=== PATIENT | male | born 1990 | race Caucasian/White ===

== ENCOUNTER 2024-08-20 18:24 | Emergency (ER) | payer OTHER, SELFPAY ==
[2024-08-20 18:31] VITALS: BP 130/63; PULSE 75; RESP 13; TEMP 36.7; O2SAT 100; BMI 26.4
--- NOTE | 2024-08-20 18:56 | ED_ITS ---
HPI - Male Genitourinary <Olesya Vinson PA-C - Last Filed: 08/20/24 19:15> General Chief complaint: Urogenital-Male Stated complaint: Swollen Genitals Time Seen by Provider: 08/20/24 18:56 Source: patient Mode of arrival: Ambulatory History of Present Illness HPI Narrative: Mr. Mcfarland is a pleasant 34-year-old male with no reported past medical history who presents to the emergency department for acute scrotal swelling that occurred about 30 minutes prior to arrival. Patient states he got dressed for going to the grocery store and had no testicular swelling or problems, when he got home he change into something new and noticed that his scrotum/both testicles were extremely swollen. He has not experiencing testicular pain but states that the area feels very heavy and he has some tingling sensation in the suprapubic region. There was no trauma, no heavy lifting, no precipitating events. He has not been experiencing any dysuria abdominal pain nausea, vomiting, diarrhea, constipation, fevers, chills, flu-like symptoms, lower extremity swelling. He does report that he has been having some left hip pain from weightlifting for the last week and he saw a little bit more bloated the last 2 days. He is here with his . Related Data Previous Rx's Medication Instructions Recorded sulfamethoxazole 800 1 tab PO Q12H 7 days #14 tabs 08/20/24 mg-trimethoprim 160 mg tablet (Bactrim DS) Review of Systems <Olesya Vinson PA-C - Last Filed: 08/20/24 19:15> Review of Systems ROS Unobtainable: All systems reviewed & are unremarkable except as noted in HPI and below Exam <Olesya Vinson PA-C - Last Filed: 08/20/24 19:15> Narrative Exam Narrative: GENERAL: 34 year old patient appears stated age. Well-developed patient, in no acute distress. HEAD: Atraumatic. Normocephalic. NECK: Trachea midline. Cervical ROM intact. CARDIOVASCULAR: Regular rate and rhythm. RESPIRATORY: ?Nonlabored respirations. ?Speaking in clear, full sentences. ?Clear to auscultation. Breath sounds equal bilaterally. No wheezes, rales, or rhonchi. ? GASTROINTESTINAL: Abdomen soft, non-tender, nondistended. Patient gave verbal consent for exam: Patient's scrotum is extremely, diffusely swollen. In the posterior aspect the scrotum there is a large area of swelling with some overlying erythema and soft palpable contents, possible hernia. Both testicles are palpable and patient reports mild heaviness/discomfort but no overt pain, there is no cellulitis on the anterior scrotum, no palpable abscess, no streaking erythema. Patient has normal uncircumcised penis with no signs of drainage or infection. EXTREMITIES: No edema or joint tenderness. BACK: Nontender without deformity or crepitance. No flank tenderness. NEURO: AOx3. ?Clear speech. ?Moves all 4 extremities appropriately. SKIN: No rash or erythema of visible areas Initial Vital Signs Initial Vital Signs: Vital Signs Temperature 98.0 F 08/20/24 18:31 Pulse Rate 75 08/20/24 18:31 Respiratory Rate 13 08/20/24 18:31 Blood Pressure 130/63 08/20/24 18:31 Pulse Oximetry 100 08/20/24 18:31 Oxygen Delivery Method Room Air 08/20/24 18:31 <Garrett Alcala DO - Last Filed: 08/20/24 21:46> Initial Vital Signs Initial Vital Signs: Vital Signs Temperature 98.0 F 08/20/24 18:31 Pulse Rate 75 08/20/24 18:31 Respiratory Rate 13 08/20/24 18:31 Blood Pressure 130/63 08/20/24 18:31 Pulse Oximetry 100 08/20/24 18:31 Oxygen Delivery Method Room Air 08/20/24 18:31 Course <Olesya Vinson PA-C - Last Filed: 08/20/24 19:15> Orders Ordered: ED Orders 08/20/24 19:11 CT pelvis w con Stat US scrotum Stat 08/20/24 19:36 CBC Auto Diff [Complete Blood Count AUTO DIFF] Stat CMP [Comprehensive Metabolic Panel] Stat Lactate (Lactic Acid) Stat Lipase Stat Vancomycin HCl/Dextrose (Vancomycin) 2,000 mg in 400 mls @ 200 mls/hr IV NOW ONE Stop: 08/20/24 23:26 Ondansetron HCl (Ondansetron 4 Mg/2 Ml Inj) 4 mg IV NOW PRN PRN Reason: Nausea And Vomiting Ondansetron HCl (Ondansetron 4 Mg Odt) 4 mg PO NOW PRN PRN Reason: Nausea And Vomiting Discontinued Medications Piperacillin Sod/Tazobactam (Sod 4.5 gm/ Sodium Chloride) 100 mls @ 200 mls/hr IV NOW ONE Stop: 08/20/24 21:27 Vital Signs Vital signs: Vital Signs - 8 hr 08/20/24 18:31 Temperature 98.0 F Pulse Rate 75 Respiratory Rate 13 Blood Pressure 130/63 Pulse Oximetry 100 Oxygen Delivery Method Room Air <Garrett Alcala DO - Last Filed: 08/20/24 21:46> Orders Ordered: ED Orders 08/20/24 19:11 CT pelvis w con Stat US scrotum Stat 08/20/24 19:36 CBC Auto Diff [Complete Blood Count AUTO DIFF] Stat CMP [Comprehensive Metabolic Panel] Stat Lactate (Lactic Acid) Stat Lipase Stat Vancomycin HCl/Dextrose (Vancomycin) 2,000 mg in 400 mls @ 200 mls/hr IV NOW ONE Stop: 08/20/24 23:26 Ondansetron HCl (Ondansetron 4 Mg/2 Ml Inj) 4 mg IV NOW PRN PRN Reason: Nausea And Vomiting Ondansetron HCl (Ondansetron 4 Mg Odt) 4 mg PO NOW PRN PRN Reason: Nausea And Vomiting Discontinued Medications Piperacillin Sod/Tazobactam (Sod 4.5 gm/ Sodium Chloride) 100 mls @ 200 mls/hr IV NOW ONE Stop: 08/20/24 21:27 Vital Signs Vital signs: Vital Signs - 8 hr 08/20/24 18:31 Temperature 98.0 F Pulse Rate 75 Respiratory Rate 13 Blood Pressure 130/63 Pulse Oximetry 100 Oxygen Delivery Method Room Air MDM - Male Genitourinary <Olesya Vinson PA-C - Last Filed: 08/20/24 19:15> Medical Records Medical records narrative: None available for review Lab Data 08/20/24 19:36 08/20/24 19:36 Labs: Lab Results 08/20/24 Range/Units 19:36 WBC 8.3 (4.5-11.0) X10^3/uL RBC 5.02 (4.5-5.9) X10^6/uL Hgb 15.3 (13.5-17.5) g/dL Hct 43.9 (41-53) % MCV 87.4 (80-100) fL MCH 30.5 (26-34) PG MCHC 34.9 (30-36) % RDW 13.6 (11.6-14.8) % Plt Count 243 (150-400) X10^3/uL Neut % (Auto) 47.8 L (50-75) % Lymph % (Auto) 42.5 H (25-40) % [place] % (Auto) 5.7 (3-14) % Eos % (Auto) 2.8 (2-4) % Baso % (Auto) 1.2 (0-2) % Neut # (Auto) 4000 (9387-6072) /uL Lymph # (Auto) 3500 (1936-1265) /uL [place] # (Auto) 500 (0-900) /uL Eos # (Auto) 200 (0-450) /uL Baso # (Auto) 100 (0-100) /uL Sodium 137 (137-145) mmol/L Potassium 4.2 (3.4-5.1) mmol/L Chloride 102 (98-107) mmol/L Carbon Dioxide 27 (22-32) mmol/L BUN 20 (9-20) mg/dL Creatinine 1.01 (0.66-1.25) mg/dL Estimated GFR > 60 (>60) mL/min BUN/Creatinine Ratio 19.8 (6-22) Glucose 92 (70-99) mg/dL Lactate 0.9 (0.7-2.1) mmol/L Calcium 9.5 (8.4-10.2) mg/dL Total Bilirubin 0.7 (0.2-1.3) mg/dL AST 182 H (17-59) IU/L ALT 82 H (<50) IU/L Alkaline Phosphatase 56 (38-126) U/L Total Protein 7.3 (6.3-8.2) g/dL Albumin 4.6 (3.5-5.0) g/dL Globulin 2.7 (1.7-4.1) g/dL Albumin/Globulin Ratio 1.7 (1.0-2.8) Lipase 57 (23-300) U/L Urine Dip Bedside Urine Glucose Negative Bedside Urine Bilirubin - Negative Bedside Urine Ketone - Negative Urine Specific [place] 1.030 Bedside Urine Occult Blood - Negative Bedside Urine pH 6.0 Bedside Urine Protein - Negative Bedside Urine Urobilinogen - Negative Bedside Urine Nitrite - Negative Bedside Urine Leukocytes - Negative Esterase MDM Narrative Medical decision making narrative: 34-year-old male with no reported past medical history who presents to the emergency department for acute scrotal swelling that occurred about 30 minutes prior to arrival. , here with his . Differential diagnosis includes but is not limited to scrotal hernia, hydrocele, varicocele, orchitis, epididymitis, scrotal abscess, Jn's gangrene etc. On exam patient is in no acute distress, nontoxic-appearing, all vital signs within normal limits. His abdomen is soft and nontender, his exam reveals an extremely swollen scrotum with some bulging and erythematous swelling of the posterior aspect of the scrotum that is concerning for possible hernia or other abnormality. He is not having much pain, reports some discomfort with palpation of the bilateral testes but mainly his discomfort is coming from the heaviness of all of the swelling. Point of care UA was negative. Discussed case with the attending ED physician, we will proceed with lab work including lactate, scrotal ultrasound and pelvic CT. Patient's workup was started in the fast track area of the emergency department but will be moved to the main emergency department due to shift change, nighttime physician aware of the patient, patient agreeable to transfer of care. <Garrett Alcala, DO - Last Filed: 08/20/24 21:46> Lab Data Labs: Lab Results 08/20/24 Range/Units 19:36 WBC 8.3 (4.5-11.0) X10^3/uL RBC 5.02 (4.5-5.9) X10^6/uL Hgb 15.3 (13.5-17.5) g/dL Hct 43.9 (41-53) % MCV 87.4 (80-100) fL MCH 30.5 (26-34) PG MCHC 34.9 (30-36) % RDW 13.6 (11.6-14.8) % Plt Count 243 (150-400) X10^3/uL Neut % (Auto) 47.8 L (50-75) % Lymph % (Auto) 42.5 H (25-40) % [place] % (Auto) 5.7 (3-14) % Eos % (Auto) 2.8 (2-4) % Baso % (Auto) 1.2 (0-2) % Neut # (Auto) 4000 (4230-3022) /uL Lymph # (Auto) 3500 (6281-7184) /uL [place] # (Auto) 500 (0-900) /uL Eos # (Auto) 200 (0-450) /uL Baso # (Auto) 100 (0-100) /uL Sodium 137 (137-145) mmol/L Potassium 4.2 (3.4-5.1) mmol/L Chloride 102 (98-107) mmol/L Carbon Dioxide 27 (22-32) mmol/L BUN 20 (9-20) mg/dL Creatinine 1.01 (0.66-1.25) mg/dL Estimated GFR > 60 (>60) mL/min BUN/Creatinine Ratio 19.8 (6-22) Glucose 92 (70-99) mg/dL Lactate 0.9 (0.7-2.1) mmol/L Calcium 9.5 (8.4-10.2) mg/dL Total Bilirubin 0.7 (0.2-1.3) mg/dL AST 182 H (17-59) IU/L ALT 82 H (<50) IU/L Alkaline Phosphatase 56 (38-126) U/L Total Protein 7.3 (6.3-8.2) g/dL Albumin 4.6 (3.5-5.0) g/dL Globulin 2.7 (1.7-4.1) g/dL Albumin/Globulin Ratio 1.7 (1.0-2.8) Lipase 57 (23-300) U/L Urine Dip Bedside Urine Glucose Negative Bedside Urine Bilirubin - Negative Bedside Urine Ketone - Negative Urine Specific [place] 1.030 Bedside Urine Occult Blood - Negative Bedside Urine pH 6.0 Bedside Urine Protein - Negative Bedside Urine Urobilinogen - Negative Bedside Urine Nitrite - Negative Bedside Urine Leukocytes - Negative Esterase MDM Narrative Medical decision making narrative: 34-year-old male with no reported past medical history who presents to the emergency department for acute scrotal swelling that occurred about 30 minutes prior to arrival. , here with his . Differential diagnosis includes but is not limited to scrotal hernia, hydrocele, varicocele, orchitis, epididymitis, scrotal abscess, Jn's gangrene etc. On exam patient is in no acute distress, nontoxic-appearing, all vital signs within normal limits. His abdomen is soft and nontender, his exam reveals an extremely swollen scrotum with some bulging and erythematous swelling of the posterior aspect of the scrotum that is concerning for possible hernia or other abnormality. He is not having much pain, reports some discomfort with palpation of the bilateral testes but mainly his discomfort is coming from the heaviness of all of the swelling. Point of care UA was negative. Discussed case with the attending ED physician, we will proceed with lab work including lactate, scrotal ultrasound and pelvic CT. Patient's workup was started in the fast track area of the emergency department but will be moved to the main emergency department due to shift change, nighttime physician aware of the patient, patient agreeable to transfer of care. 2139: Patient was evaluated by myself, on exam patient does have erythematous thickened scrotal skin primarily to the left edema but no pain, no palpable inguinal hernia, the head of the meatus without any purulent discharge, ultrasound and CT scan showing acute cellulitis, no free air, will give dose of IV broad-spectrum antibiotics discharged home on oral antibiotics and instructed to follow up with Urology in outpatient setting, he verbalized understanding of this and agrees to being discharged home with outpatient follow up Discharge Plan Departure Patient Disposition: Home Clinical Impression: Cellulitis of scrotum Instructions: DI for Cellulitis -- Adult Activity Restrictions/Additional Instructions: Please follow up with Urology and your primary care doctor Please read the discharge instructions sheet carefully and bring all papers to all doctor follow-up visits, as it may contain information that your doctor may want to see. Disease processes change and evolve, if your symptoms worsen or if you develop any new symptoms that are concerning to you please return for evaluation. Your evaluation today does not show any evidence of any life- threatening/serious illnesses requiring admission to the hospital or surgery. Please follow-up with your doctor for re-evaluation in approximately 1 day. Seek immediate medical attention for any worrisome symptoms. *If you do not have a primary care provider please contact the [facility] Resource line at [phone]. They will ask some questions about your medical history and help get you set up with a doctor in the community. Prescriptions: New sulfamethoxazole-trimethoprim [Bactrim DS] 800-160 mg tablet 1 tab PO Q12H 7 Days Qty: 14 0RF Referrals: Kal Ocasio DO [Physician] - Miscellaneous,Doctor, MD [Primary Care Provider] - Stand Alone Forms: Patient Portal/API/Survey
--- NOTE | 2024-08-20 19:11 | DI.CT.S_ITS ---
PROCEDURE: CT PELVIS W CON INDICATIONS: acute scrotal swelling TECHNIQUE: After the administration of intravenous contrast, 5 mm thick sections acquired from the iliac crests to the symphysis. 5 mm coronal and sagittal reformats were acquired. For radiation dose reduction, the following was used: automated exposure control, adjustment of mA and/or kV according to patient size. COMPARISON: None. FINDINGS: Image quality: Diagnostic. PELVIS: Peritoneum and Bowel: Bowel loops demonstrate normal wall thickness and caliber. No free fluid or air. Pelvic Organs: No pelvic mass. Bladder: Normal wall thickness, accounting for underdistension. No perivesicular fat stranding. Pelvic Nodes: No enlarged lymph nodes. Miscellaneous: No inguinal hernias are seen. Bones: No aggressive osseous abnormality. There is significant scrotal wall thickening bilaterally, with hypoenhancement. Edema is also seen extending superiorly, towards the base of the penis as well as into the hypogastric region and lingula region bilaterally. No fluid collection. No soft tissue gas seen. IMPRESSION: 1. Significant edema of the scrotal wall bilaterally, extending superiorly towards the hypogastric and inguinal region superficially. This may be due to cellulitis or possibly generalized 3rd spacing. 2. No focal lesion seen otherwise. No hernia. Dictated by: Madhav Meza M.D. on 08/20/2024 at 20:42 Approved by: Madhav Meza M.D. on 08/20/2024 at 20:46
--- NOTE | 2024-08-20 19:11 | DI.US.S_ITS ---
PROCEDURE: US SCROTUM INDICATIONS: acute large scrotal swelling; concern hernia vs infx vs othe TECHNIQUE: Real-time scanning was performed of the scrotum and testicles, with image documentation. Color and pulse Doppler interrogation was performed of both testicles. COMPARISON: None. FINDINGS: Right: Testicle is normal in size at 5.1 x 3.7 x 3 cm, and homogenous in echotexture. Epididymis is normal in overall size and morphology. No hydrocele or varicoceles. Significant scrotal wall thickening bilaterally. Left: Testicle is normal in size at 5.5 x 3.4 x 3 cm, and homogeneous in echotexture. Epididymis is normal in overall size and morphology. No hydrocele or varicoceles. Significant scrotal wall thickening bilaterally. Doppler: Color and pulse Doppler demonstrate normal and symmetric arterial flow in both testicles. IMPRESSION: 1. Significant bilateral scrotal wall thickening, no definite bowel containing hernia seen. This will be further assessed on upcoming CT. 2. Unremarkable appearance of the testicles. Dictated by: Madhav Meza M.D. on 08/20/2024 at 20:39 Approved by: Madhav Meza M.D. on 08/20/2024 at 20:41
[2024-08-20 19:43] LABS: Add Manual Diff / Slide Review NO; Basophils Absolute Auto 100 /uL (0-100); Basophils Percent Auto 1.2 % (0-2); Eosinophils Absolute Auto 200 /uL (0-450); Eosinophils Percent Auto 2.8 % (2-4); Hematocrit 43.9 % (41-53); Hemoglobin 15.3 g/dL (13.5-17.5); Lymphocytes Absolute Auto 3500 /uL (1100-4500); Lymphocytes Percent Auto 42.5 % (25-40); Mean Corpuscular HGB Conc 34.9 % (30-36); Mean Corpuscular Hemoglobin 30.5 PG (26-34); Mean Corpuscular Volume 87.4 fL (80-100); Monocytes Absolute Auto 500 /uL (0-900); Monocytes Percent Auto 5.7 % (3-14); Neutrophils Absolute Auto 4000 /uL (1500-7000); Neutrophils Percent Auto 47.8 % (50-75); Platelet Count 243 X10^3/uL (150-400); Red Blood Cell Count 5.02 X10^6/uL (4.5-5.9); Red Cell Distribution Width 13.6 % (11.6-14.8); White Blood Cell Count 8.3 X10^3/uL (4.5-11.0)
[2024-08-20 19:54] LABS: Lactate (Lactic Acid) 0.9 mmol/L (0.7-2.1)
[2024-08-20 19:55] LABS: Alanine Aminotransferase 82 IU/L (<50); Albumin 4.6 g/dL (3.5-5.0); Albumin Globulin Ratio 1.7 (1.0-2.8); Alkaline Phosphatase 56 U/L (38-126); Aspartate Aminotransferase 182 IU/L (17-59); BUN Creatinine Ratio 19.8 (6-22); Bilirubin Total 0.7 mg/dL (0.2-1.3); Blood Urea Nitrogen 20 mg/dL (9-20); Calcium 9.5 mg/dL (8.4-10.2); Carbon Dioxide 27 mmol/L (22-32); Chloride 102 mmol/L (98-107); Estimated Glomerular Filt Rate > 60 mL/min (>60); Globulin 2.7 g/dL (1.7-4.1); Glucose 92 mg/dL (70-99); HEMOLYSIS < 15 (0-50); Lipase 57 U/L (23-300); Potassium 4.2 mmol/L (3.4-5.1); Sodium 137 mmol/L (137-145); Total Protein 7.3 g/dL (6.3-8.2)
[2024-08-20] MEDS: PIPERACILLIN/TAZO 4.5 GM in SODIUM CHLORIDE 0.9% 100 ML IV (21:39)
[2024-08-20] MEDS: VANCOMYCIN 2,000 MG/400 ML PIGGYBACK 200 MG IV (22:17)
[2024-08-20 23:52] VITALS: BP 133/63; PULSE 70; RESP 18; O2SAT 99
== END 2024-08-21 00:28 | disposition home or self-care (01) ==
PROVIDERS: Physician Assistant; Emergency Provider Student in an Organized Health Care Education/Training Program
DX: N49.2 Inflammatory disorders of scrotum (principal)
CPT/HCPCS: 36415; 72193; 76870; 80053; 81003; 83605; 83690; 85025; 93975; 96365; 96366; 96367; 99284; J2543; Q9967